=== PATIENT | female | born 1955 | race Caucasian/White ===

== ENCOUNTER 2019-10-03 09:29 | Emergency (ER) | payer MEDICARE, OTHER, SELFPAY ==
[2019-10-03 09:34] VITALS: BP 139/70; PULSE 75; RESP 16; TEMP 37.2; O2SAT 100
[2019-10-03 09:41] VITALS: PULSE 78; RESP 18; O2SAT 98
--- NOTE | 2019-10-03 10:09 | ED.GENADULT ---
HPI - General Adult General Chief complaint: Allergic Reaction Stated complaint: allergic reaction Time Seen by Provider: 10/03/19 10:08 Source: patient Mode of arrival: ambulatory Limitations: no limitations History of Present Illness HPI narrative: 64-year-old female patient presents to the [facility] with complaints of a rash for the past 3 days. Patient states she started taking some clindamycin for a dental infection along with ibuprofen and tramadol about a week ago. Patient states that she stopped taking the tramadol and ibuprofen this past Sunday because she did not need it for the pain anymore. Patient states she started breaking out into a rash Sunday. Complaining of itchiness and rash to the chest, back, neck. Patient states she went saw her primary doctor yesterday and had steroid shot . Patient unknown of what type steroid it is. Patient states that this morning she woke up and her eyes were swollen shut and continues to have itchiness and a rash that she feels that is worse. Denies taking any Benadryl or any other medications prior to arrival today. Denies any chest pain or shortness of breath. Denies any trouble swallowing. Denies coming into contact with any poison matt that she is aware of. Related Data Home Medications Medication Instructions Recorded Confirmed biotin 10,000 mcg capsule 10,000 mcg PO .qd cap 04/28/19 08/08/19 blood sugar diagnostic #10 each 04/28/19 08/08/19 mecobalamin (vitamin B12) 1,000 1,000 mcg PO .qd tablet 04/28/19 08/08/19 mcg chewable tablet methylcellulose (laxative) 500 mg 500 mg PO DAILY 04/28/19 08/08/19 tablet vitamin B comp with C no.4 150 mg 1 tablet PO .qd tablet 04/28/19 08/08/19 tablet calcium citrate 500 mg (2,376 mg) 500 mg PO DAILY each 07/31/19 08/08/19 effervescent tablet Allergies Allergy/AdvReac Type Severity Reaction Status Date / Time Macrolide Antibiotics Allergy Severe Anaphylactic Verified 10/03/19 09:43 Shock clindamycin Allergy Intermediate Rash, Verified 10/03/19 09:43 burning, hives losartan Allergy Intermediate panic Verified 10/03/19 09:43 attacks and wt gain Sulfa (Sulfonamide Allergy Intermediate Headache Verified 10/03/19 09:43 Antibiotics) MELVIN Inhibitors Allergy Mild Unknown Verified 10/03/19 09:43 ampicillin Allergy Mild Unknown Verified 10/03/19 09:43 Cephalosporins Allergy Mild Unknown Verified 10/03/19 09:43 erythromycin base Allergy Mild Unknown Verified 10/03/19 09:43 ezetimibe Allergy Mild Unknown Verified 10/03/19 09:43 metronidazole Allergy Mild Unknown Verified 10/03/19 09:43 Penicillins Allergy Mild Unknown Verified 10/02/19 10:05 simvastatin Allergy Mild Unknown Verified 10/02/19 10:05 Tetanus Vaccines and Toxoid Allergy Mild Unknown Verified 10/02/19 10:05 METALS Allergy Severe HIVES/RASH Uncoded 10/02/19 10:05 METRONIDAZOLE HCL Allergy Intermediate Welts, Uncoded 10/02/19 10:05 fever, itching Review of Systems Review of Systems: Narrative: CONSTITUTIONAL: Denies fever, chills, or sweats. EYES: Denies visual changes, redness, or discharge. ENT: Denies rhinorrhea, congestion, sore throat, or otalgia. CARDIOVASCULAR: Denies chest pain, palpitations, or edema. RESPIRATORY: Denies cough or dyspnea. GASTROINTESTINAL: Denies abdominal pain, nausea, vomiting, or diarrhea. GENITOURINARY: Denies dysuria or hematuria. SKIN: Positive rash with itching to chest, neck, back and face MUSCULOSKELETAL: Denies back pain, joint pain, or myalgia. NEUROLOGIC: Denies headache, numbness, or weakness. PSYCHIATRIC: Denies anxiety or depression. [facility] Family History Family History Mother Family history of malignant neoplasm of breast in first degree relative Family history of chronic obstructive pulmonary disease Father Hypertension Family history of malignant neoplasm of urinary bladder Social History Social History (Reviewed
[2019-10-03] MEDS: predniSONE 20 MG TABLET 40 MG PO (10:27)
[2019-10-03] MEDS: diphenhydrAMINE HCl CAP 25 MG CAPSULE PO (10:27)
[2019-10-03 11:01] VITALS: BP 140/80; PULSE 70; RESP 19; O2SAT 98
== END 2019-10-03 11:03 | disposition home or self-care (01) ==
PROVIDERS: Emergency Provider Nurse Practitioner Family; PCP Internal Medicine
DX: T78.40XA Allergy, unspecified, initial encounter (principal); Z79.84 Long term (current) use of oral hypoglycemic drugs; R03.0 Elevated blood-pressure reading, without diagnosis of hypertension
CPT/HCPCS: 99283; A9270; J7512

== ENCOUNTER 2021-08-03 09:00 | Outpatient (CLI) | payer MEDICARE, OTHER, SELFPAY ==
--- NOTE | 2021-08-03 09:07 | ECHO_ITS ---
Patient Info Name: Taylor Archibald Age: 66 years : 1955 Gender: Female Ht: 64 in Wt: 190 lbs BSA: 2.01 m2 HR: 76 bpm BP: 143 / 88 mmHg Heart Rhythm: Sinus Rhythm Exam Date: 08/03/2021 9:38 AM Exam Location: [facility] Patient Status: Outpatient Admit Date: 08/03/2021 Staff Ordering Physician: Alex Bedolla PA-C Scrap Metal Collector: Marques Griffiths RDCS, RT Attending Provider: Alex Bedolla PA-C Referring Physician: Chioma HANDY; Exam Type: CA echo doppler color flow Study Info Indications R01.1 - Cardiac murmur, unspecified Complete two-dimensional, color flow and Doppler transthoracic echocardiogram is performed. Strain analysis performed. Summary 1. Complete two-dimensional, color flow and Doppler transthoracic echocardiogram is performed. 2. Left ventricular chamber dimension is normal. 3. Left ventricular systolic function is normal, estimated at >70%. 4. There is mildly increased left ventricular wall thickness. 5. The left ventricular diastolic function is grade I diastolic dysfunction. 6. Global longitudinal strain is mildly elevated at -16 %. 7. There is trace mitral valve regurgitation. 8. There is trace tricuspid valve regurgitation. 9. No pulmonary hypertension, estimated pulmonary arterial systolic pressure is 27 mmHg. 10. There is no aortic valve stenosis. Left Ventricle Left ventricular chamber dimension is normal. Left ventricular systolic function is normal, estimated at >70%. There is mildly increased left ventricular wall thickness. The left ventricular diastolic function is grade I diastolic dysfunction. Global longitudinal strain is mildly elevated at -16 %. Right Ventricle Right ventricular chamber dimension is normal. Right ventricular systolic function is normal. Left Atria Left atrial chamber dimension is normal. Right Atria Right atrial chamber dimension is normal. Aortic Valve The aortic valve is probable trileaflet. There is mild aortic valve sclerosis. There is no aortic valve stenosis. There is mild aortic valve regurgitation. Pulmonic Valve The pulmonic valve is not well visualized. There is trace pulmonic regurgitation. Mitral Valve The mitral valve has thickened leaflets. There is trace mitral valve regurgitation. The mitral valve annulus is mildly calcified. Tricuspid Valve The tricuspid valve leaflets are normal. There is trace tricuspid valve regurgitation. No pulmonary hypertension, estimated pulmonary arterial systolic pressure is 27 mmHg. Pericardium/Pleural The pericardium appears epicardial fat pad. There is trivial pericardial effusion. Inferior Vena Cava Normal inferior vena cava with >50% collapse upon inspiration consistent with normal right atrial pressure, 5 mmHg. Aorta The aortic root size at the sinus of Valsalva is normal. There is mild aortic atherosclerosis. Left Ventricular Outflow Tract Name Value Normal LVOT 2D LVOT Diameter 2.0 cm LVOT Doppler LVOT Peak Gradient 3 mmHg LVOT Mean Gradient 2 mmHg LVOT VTI
== END 2021-08-03 09:01 | disposition home or self-care (01) ==
LOC: ANHCARD 09:01
PROVIDERS: PCP Physician Assistant; Visit Provider Physician Assistant
DX: R01.1 Cardiac murmur, unspecified (principal)
CPT/HCPCS: 93306

== ENCOUNTER 2021-10-11 09:36 | Outpatient (CLI) | payer MEDICARE, OTHER, SELFPAY ==
--- NOTE | ~2021-10-11 | DEXA_ITS ---
Bone Density Report Name: MAYDA RODRIGUEZ Age: 66 Sex: Female Ethnicity: White Date of : 1955 Indication: postmenopausal; screening for osteoporosis; inflammatory bowel disease; prior fracture; cancer; rheumatoid arthritis; Referring Provider: PARKER CAAL Study: Bone densitometry was performed. Exam Date: October 11, 2021 Accession number: [id number] Bone Density: Region BMD T-score Z-score Classification AP Spine(L1-L4) 1.182 1.2 3.2 Normal Femoral Neck (Left) 0.805 -0.4 1.3 Normal Total Hip (Left) 0.958 0.1 1.6 Normal Femoral Neck (Right) 0.847 0.0 1.7 Normal Total Hip (Right) 0.980 0.3 1.7 Normal Total Hip Mean 0.969 0.2 1.7 Normal World Health Organization criteria for BMD impression classify patients as: Normal (T-score at or above -1.0), Osteopenia (T-score between -1.0 and -2.5), or Osteoporosis (T-score at or below -2.5). 10-year Fracture Risk: FRAX not reported because: All T-scores for Spine Total, Hip Total, Femoral Neck at or above -1.0 Previous Exams: Region Exam Age BMD T-score BMD Change BMD Change Date g/cm2 vs Baseline vs Previous AP Spine (L1-L4) 10/11/2021 66 1.182 1.2 -0.016 (-1.3%) -0.012 (-1.0%) 04/06/2015 60 1.194 1.3 -0.003 (-0.3%) -0.003 (-0.3%) 02/11/2013 57 1.197 1.4 Total Hip(Left) 10/11/2021 66 0.958 0.1 -0.067 (-6.5%) -0.043 (-4.3%) 04/06/2015 60 1.001 0.5 -0.024 (-2.3%) -0.024 (-2.3%) 02/11/2013 57 1.025 0.7 Total Hip(Right) 10/11/2021 66 0.980 0.3 -0.138 (-12.3% -0.082 (-7.7%) 04/06/2015 60 1.063 1.0 -0.055 (-4.9%) -0.055 (-4.9%) 02/11/2013 57 1.118 1.4 *Denotes significance at 95% confidence level, LSC for AP Spine = 0.022 g/cm2, LSC for Total Hip = 0.027 g/cm2 # Denotes dissimilar scan types or analysis methods Clinical Information Provided by Patient: Has had a low trauma fracture Has rheumatoid arthritis Has used the following medications: Vitamin D, Calcium Has the following medical conditions: Cancer, Inflammatory bowel diseases Patient maximum height was 64 Menopause Age: 48 No regular weight bearing exercise Drinks caffeinated beverages Onset of menses at age 6 Number of children 2 Impression: The patient has normal bone mass. The patient has risk factors, including: previous fracture. The BMD for the Total Hip(Left) decreased, changing by -4.3% since the last DXA exam. The BMD for the Total Hip(Right) decreased, ch
== END 2021-10-11 09:37 | disposition home or self-care (01) ==
PROVIDERS: PCP Physician Assistant; Visit Provider Physician Assistant
DX: M81.0 Age-related osteoporosis without current pathological fracture (principal)
CPT/HCPCS: 77080

== ENCOUNTER 2022-09-12 13:07 | Emergency (ER) | payer MEDICARE, OTHER, SELFPAY ==
[2022-09-12 13:10] VITALS: BP 135/71; PULSE 79; RESP 18; TEMP 36.3; O2SAT 100
--- NOTE | 2022-09-12 15:02 | ED.BACK ---
HPI - Back Pain/Injury General Chief Complaint: Back Pain/Injury Stated Complaint: back pain Time Seen by Provider: 09/12/22 14:16 Source: patient Mode of arrival: ambulatory Limitations: no limitations History of Present Illness HPI Narrative: 67 years old white female came to the emergency room by private car complaining of sharp stabbing pain across lower back bilaterally started 5 days ago. Patient set up a tent 6 days ago. Which is unusual. She denies any fever, chills, nausea, vomiting, trauma, radiation of pain, tingling numbness or focal neurodeficit. Pain worse with certain movement and position, better with certain positions. Related Data Home Medications Medication Instructions Recorded Confirmed biotin 10,000 mcg capsule 10,000 mcg PO .qd 04/28/19 07/20/22 blood sugar diagnostic (Accu-Chek #10 ea 04/28/19 07/20/22 Shayla Plus test strips) mecobalamin (vitamin B12) 1,000 1,000 mcg PO .qd 04/28/19 07/20/22 mcg chewable tablet methylcellulose (laxative) 500 mg 500 mg PO DAILY 04/28/19 07/20/22 tablet (Citrucel) vitamin B comp with C no.4 150 mg 1 tablet PO .qd 04/28/19 07/20/22 tablet calcium citrate 500 mg (2,376 mg) 500 mg PO DAILY 07/31/19 07/20/22 effervescent tablet Allergies Allergy/AdvReac Type Severity Reaction Status Date / Time Macrolide Antibiotics Allergy Severe Anaphylactic Verified 09/12/22 13:07 Shock clindamycin Allergy Intermediate Rash, Verified 09/12/22 13:07 burning, hives losartan Allergy Intermediate panic Verified 09/12/22 13:07 attacks and wt gain Sulfa (Sulfonamide Allergy Intermediate Headache Verified 09/12/22 13:07 Antibiotics) MELVIN Inhibitors Allergy Mild Unknown Verified 09/12/22 13:07 ampicillin Allergy Mild Unknown Verified 09/12/22 13:07 Cephalosporins Allergy Mild Unknown Verified 09/12/22 13:07 erythromycin base Allergy Mild Unknown Verified 09/12/22 13:07 ezetimibe Allergy Mild Unknown Verified 09/12/22 13:07 metronidazole Allergy Mild Unknown Verified 09/12/22 13:07 Penicillins Allergy Mild Unknown Verified 09/12/22 13:07 simvastatin Allergy Mild Unknown Verified 09/12/22 13:07 Tetanus Vaccines and Toxoid Allergy Mild Unknown Verified 09/12/22 13:07 METALS Allergy Severe HIVES/RASH Uncoded 09/12/22 13:07 METRONIDAZOLE HCL Allergy Intermediate Welts, Uncoded 09/12/22 13:07 fever, itching Review of Systems Review of Systems: All systems reviewed & are unremarkable except as noted in HPI and below PMFSH Past Medical History Medical History Ulcerative colitis Family History Family History Mother Family history of malignant neoplasm of breast in first degree relative Family history of chronic obstructive pulmonary disease Father Hypertension Family history of malignant neoplasm of urinary bladder Social History Social History Smoking packs per day: 3 Smoking cigarettes per day: 60.0 Years smoked: 18 Smoking pack-years: 54.00 Smoking status: Former smoker Second hand tobacco smoke exposure: No Smoking end date: 03/05/84 Alcohol intake: never Substance use: never Lack of Transportation: No Lack of Food: Never True Current Housing: I Have Housing Concerned About Future Housing: No Difficulty Paying Gas/Electric Bills: No Difficulty Paying for Meds: YES Currently Unemployed: No Education: Master's Degree or Higher Difficulty w/ Childcare or Family Care: No Exam Narrative: General appearance: Well-developed, well-nourished Skin: Normal color Head: Normocephalic, nontraumatic Eyes: Clear conjunctiva ENT: Oropharynx normal, ears normal, nose normal Neck: Supple, nontender Chest and respiratory: Airway patent, no respiratory distress, no accessory muscle use Heart: Regular rate/rhythm Abdomen: Soft, nontender, no org
[2022-09-12] MEDS: ONDANSETRON HCL ODT 4 MG TABLET PO (15:12)
[2022-09-12] MEDS: CYCLOBENZAPRINE HCL 10 MG TABLET 5 MG PO (15:12)
== END 2022-09-12 15:54 | disposition home or self-care (01) ==
PROVIDERS: Emergency Provider Emergency Medicine; PCP Physician Assistant
DX: M54.50 Low back pain, unspecified (principal)
CPT/HCPCS: 99283; A9270; J2270

== ENCOUNTER 2022-09-27 11:48 | Outpatient (CLI) | payer MEDICARE, OTHER, SELFPAY ==
--- NOTE | ~2022-09-27 | XR_ITS ---
XR lumbar spine 6V w bending DATE: 09/27/2022 12:32 INDICATION: Low back pain after picking up a tent TECHNIQUE: AP, lateral, bilateral oblique views, coned lateral lumbosacral view. Flexion and extensio n lateral views COMPARISON: 02/17/2010/ lumbar spine FINDINGS: There is mild thoracolumbar levoscoliosis. There is normal alignment of the lumbar spine. No fracture or bone destruction. The lumbar pedicles are intact. There is degenerative spurring of the lower thoracic and upper lumbar spine. There is moderate degen erative disc disease at L1-2 and L2-3 with associated mild retrolisthesis at L2-3. There is degenerative spurring of the apophyseal joints with grade 1 anterolisthesis at L4-5. Status post cholecystectomy. IMPRESSION: Lower thoracic and lumbar spondylosis Reviewed, dictated and finalized at location B.
[2022-09-27 13:07] LABS: Appearance Urine Clear (Clear); Bacteria Urine None Seen /hpf; Bilirubin Urine Negative (Negative); Blood Urine Negative (Negative); Color Urine Yellow (Yellow); Glucose Urine UA Negative (Negative); Ketones Urine Negative (Negative); Leukocyte Esterase Ur 2+ LEU/UL (NEGATIVE); Nitrate Urine Negative (Negative); Non Pathogenic Casts 0-2; Protein Urine Negative (Negative); RBC Urine 0-2 /hpf (0-2); Specific Grav Ur 1.015 (1.001-1.035); Squamous Epithelial Cell Urine None seen /hpf (Few); pH Urine 6.5 (5.0-9.0)
[2022-09-27 13:21] LABS: Add Urine Microscopic? YES
== END 2022-09-27 11:49 | disposition home or self-care (01) ==
PROVIDERS: PCP Physician Assistant; Visit Provider Physician Assistant
DX: R30.0 Dysuria (principal); M47.894 Other spondylosis, thoracic region; M47.896 Other spondylosis, lumbar region
CPT/HCPCS: 72114; 81001; 87086

== ENCOUNTER 2022-10-05 07:51 | Outpatient (RCR) | payer MEDICARE, OTHER, SELFPAY ==
--- NOTE | 2022-10-05 11:28 | PTOPEVDC ---
Assessment and note entered by Iron Boyce, PT Thank you for referring Taylor Archibald to [facility].? An evaluation has been completed. No further treatment is needed. Evaluation Information Assessment Status Evaluation Diagnosis low back pain Onset a few weeks ago Subjective Information Patient reports hurting her back a couple weeks ago and went to the ER. Patient reports the pain is getting better. She still does have a band around L4-L5 that does hurt, but she attributes that to her DDD which she reports she has had since she was 25 year ago. Patient reports increased pain with flexion especially after sitting for a long period of time, but after doing her stretches it works itself out. Reported Pain Level Pain Score 2: Self Report Assessment PT Clinical Summary Macho is a 67 year old female coming into the clinic with a diagnosis of low back pain. It is non radiating and appears to have the S/S of OA and DDD. Patient given an HEP for home as she reports her chiropractor can help with break through pain if she has an exacerbation. Discharged from physical therapy. Plan of Care PT Services Indicated No Treatment Frequency and Discharged from skilled physical therapy. Duration
== END 2022-10-05 11:36 | disposition home or self-care (01) ==
LOC: ANHPT 07:51
PROVIDERS: PCP Physician Assistant; Visit Provider Physician Assistant
DX: M54.50 Low back pain, unspecified (principal)
CPT/HCPCS: 97110; 97161

== ENCOUNTER 2023-08-22 08:16 | Outpatient (CLI) | payer MEDICARE, OTHER, SELFPAY ==
--- NOTE | ~2023-08-22 | MR_ITS ---
EXAMINATION: MR shoulder LT wo con DATE: 08/22/2023 09:02 INDICATION: Left shoulder pain. TECHNIQUE: Magnetic resonance imaging (MRI) of the left shoulder was performed without intravenous co ntrast. Sequences included axial PD-weighted FS FSE, coronal oblique PD-weighted FS FSE and T2-weight ed FS FSE, and sagittal oblique T2-weighted FS FSE and T1-weighted FSE. COMPARISON: Left shoulder radiograph 08/15/2023 FINDINGS: Coracoacromial arch: The acromion undersurface is curved in morphology (type II). There is severe acromioclavicular joint osteoarthritis. There is mild subacromial/subdeltoid bursitis. Rotator cuff: There is mild supraspinatus and infraspinatus tendinopathy. Teres minor tendon is normal. There is mi ld subscapularis tendinopathy. No tear. There is no asymmetric fatty atrophy of the rotator cuff musc le bellies. Biceps tendon and glenoid labrum: Biceps tendon is in bicipital groove. There is moderate intra-articular biceps tendinopathy. There is degenerative tearing of the glenoid labrum (SLAP tear). Fluid: There is a moderate-sized glenohumeral joint effusion with loose bodies. Bones/cartilage: There is an old healed fracture deformity of surgical neck of proximal left humerus. There is full-th ickness cartilage loss of posterior medial humeral head and posterior glenoid. There is collapse of t he articular surface of posterior medial humeral head. IMPRESSION: 1. Advanced glenohumeral joint osteoarthritis including collapse of the articular surface of posterio r medial humeral head. 2. Severe acromioclavicular joint osteoarthritis. 3. Moderate-sized glenohumeral joint effusion with loose bodies. 4. Moderate intra-articular biceps tendinopathy. 5. Mild rotator cuff tendinopathy. No tear. Reviewed, dictated and finalized at location A. IMPRESSION: 1. Advanced glenohumeral joint osteoarthritis including collapse of the articul ar surface of posterior medial humeral head. 2. Severe acromioclavicular joint osteoarthritis. 3. Moderate-sized glenohumeral joint effusion with loose bodies. 4. Moderate intra-articular biceps tendinopathy. 5. Mild rotator cuff tendinopathy. No tear.
== END 2023-08-22 08:17 ==
LOC: GOSHIMG 08:17
PROVIDERS: PCP Physician Assistant; Visit Provider Orthopaedic Surgery
DX: M19.012 Primary osteoarthritis, left shoulder (principal); M75.52 Bursitis of left shoulder; M25.412 Effusion, left shoulder; M24.012 Loose body in left shoulder
CPT/HCPCS: 73221

== ENCOUNTER 2023-09-20 06:13 | Day surgery (SDC) | payer MEDICARE, OTHER, SELFPAY ==
[2023-08-06 11:59] VITALS: BMI 31.0
--- NOTE | 2023-09-20 07:13 | PM.HPGS ---
History of Present Illness History of Present Illness Consent: Risks, benefits, and alternatives have been discussed and questions answered. Patient agrees to proceed with procedure. Chief complaint: Ulcerative colitis Narrative: Taylor Archibald is a 68 year old female presents for screening colonoscopy. Patient has a long history of ulcerative colitis. Previously maintained on Asacol. Colonoscopy 5 years ago revealed mucosa to be in remission. Patient has had no recent flares of disease. She discontinued the Asacol 1-2 years ago. Her bowel habits have remained normal. Some diarrhea when she becomes anxious and under stress. Family history is noncontributory. Patient's past medical history also includes gastric bypass surgery in the past. She presents today for surveillance screening colonoscopy. Review of Systems Review of Systems: All systems reviewed & are unremarkable except as noted in HPI and below PMFSH Past Medical History Medical History (Updated 09/20/23 @ 07:15 by Gregory Cano MD) Arthritis Diabetes Rheumatoid arthritis Ulcerative colitis Surgical History Surgical History (Updated 08/15/23 @ 08:57 by La Das CMA) History of carpal tunnel release of both wrists History of cholecystectomy History of gastric bypass History of tonsillectomy Family History Family History Mother Family history of malignant neoplasm of breast in first degree relative Family history of chronic obstructive pulmonary disease Father Hypertension Family history of malignant neoplasm of urinary bladder Social History Social History (Updated 08/15/23 @ 08:57 by La Das CMA) Smoking packs per day: 3 Smoking cigarettes per day: 60.0 Years smoked: 18 Smoking pack-years: 54.00 Smoking status: Former smoker Tobacco type: cigarettes Second hand tobacco smoke exposure: No Smoking end date: 03/05/84 Alcohol intake: never Substance use: never Substance use type: does not use Lack of Transportation: No Lack of Food: Never True Current Housing: Decline to Answer Concerned About Future Housing: No Difficulty Paying Gas/Electric Bills: No Difficulty Paying for Meds: No Currently Unemployed: No Education: Master's Degree or Higher Difficulty w/ Childcare or Family Care: No Living arrangements: with family Occupation/Education: retired Spiritual care concerns: No Meds Home Medications and Allergies Home Medications Medication Instructions Recorded Confirmed Type biotin 10,000 mcg capsule 10,000 mcg PO .qd 04/28/19 09/20/23 History blood sugar diagnostic (Accu-Chek #10 ea 04/28/19 07/26/23 History Shayla Plus test strips) folic acid 1 mg tablet 1 mg PO DAILY #90 tabs 04/28/19 09/20/23 Rx mecobalamin (vitamin B12) 1,000 1,000 mcg PO .qd 04/28/19 09/05/23 History mcg chewable tablet vitamin B comp with C no.4 150 mg 1 tablet PO .qd 04/28/19 09/05/23 History tablet calcium citrate 500 mg (2,376 mg) 500 mg PO DAILY 07/31/19 09/20/23 History effervescent tablet betamethasone valerate 0.1 % 1 applic topical BID PRN rash #45 08/26/20 09/20/23 Rx topical cream grams fluoxetine 40 mg capsule 40 mg PO QAM #90 caps 07/20/22 09/20/23 Rx cyclobenzaprine 5 mg tablet 5 mg PO TID #20 tabs 09/12/22 09/20/23 Rx tramadol 50 mg tablet 50 mg PO Q4H PRN pain #20 tabs 09/12/22 09/05/23 Rx alprazolam 0.25 mg tablet 0.25 mg PO BID PRN anxiety #180 05/08/23 09/05/23 Rx tabs methotrexate sodium 2.5 mg tablet 20 mg PO WEEKLY #96 tabs 05/08/23 09/05/23 Rx omeprazole 20 mg capsule,delayed 20 mg PO DAILY #90 caps 05/08/23 09/05/23 Rx release hydrochlorothiazide 25 mg tablet 25 mg PO DAILY #90 tabs 06/25/23 09/20/23 Rx metformin 500 mg tablet 1,000 mg PO BID #360 tabs 07/30/23 09/05/23 Rx Zyrtec-D 5 mg-120 mg 1 tablet PO Q12H #180 tabs 08/24/23 09/05/23 Rx tablet,extended release (cetirizine-p
--- NOTE | 2023-09-20 07:21 | WPDANESEPPF ---
Anes - Initial Pre Proc Eval Procedure: Operation Date: 09/20/23 08:00 Proposed Procedures p Diagnostic Colonoscopy - Gregory Cano MD Date/Time: 09/20/23 07:21 Surgeon: Gregory Cano MD Pre Op Diagnosis: Ulcerative colitis Patient Data Age: 68 Gender: F Height: 1.6 m Weight: 77 kg Allergies Allergy/AdvReac Type Severity Reaction Status Date / Time erythromycin base Allergy Severe Other Verified 09/05/23 14:10 Macrolide Antibiotics Allergy Severe Anaphylactic Verified 09/20/23 07:12 Shock clindamycin Allergy Intermediate Rash, Verified 09/20/23 07:12 burning, hives losartan Allergy Intermediate panic Verified 09/20/23 07:12 attacks and wt gain MELVIN Inhibitors Allergy Mild Unknown Verified 09/20/23 07:12 ampicillin Allergy Mild Rash Verified 09/20/23 07:12 Cephalosporins Allergy Mild Rash Verified 09/20/23 07:12 ezetimibe Allergy Mild Unknown Verified 09/20/23 07:12 Penicillins Allergy Mild Rash Verified 09/20/23 07:12 simvastatin Allergy Mild Unknown Verified 09/20/23 07:12 Sulfa (Sulfonamide AdvReac Intermediate Headache Verified 09/05/23 14:10 Antibiotics) Tetanus Vaccines and Toxoid AdvReac Mild Itching Verified 09/05/23 14:10 METALS Allergy Severe HIVES/RASH Uncoded 09/05/23 14:10 METRONIDAZOLE HCL Allergy Intermediate Welts, Uncoded 09/05/23 14:10 fever, itching Home Medications Medication Instructions Recorded Confirmed Type biotin 10,000 mcg capsule 10,000 mcg PO .qd 04/28/19 09/20/23 History blood sugar diagnostic (Accu-Chek #10 ea 04/28/19 07/26/23 History Shayla Plus test strips) folic acid 1 mg tablet 1 mg PO DAILY #90 tabs 04/28/19 09/20/23 Rx mecobalamin (vitamin B12) 1,000 1,000 mcg PO .qd 04/28/19 09/05/23 History mcg chewable tablet vitamin B comp with C no.4 150 mg 1 tablet PO .qd 04/28/19 09/05/23 History tablet calcium citrate 500 mg (2,376 mg) 500 mg PO DAILY 07/31/19 09/20/23 History effervescent tablet betamethasone valerate 0.1 % 1 applic topical BID PRN rash #45 08/26/20 09/20/23 Rx topical cream grams fluoxetine 40 mg capsule 40 mg PO QAM #90 caps 07/20/22 09/20/23 Rx cyclobenzaprine 5 mg tablet 5 mg PO TID #20 tabs 09/12/22 09/20/23 Rx tramadol 50 mg tablet 50 mg PO Q4H PRN pain #20 tabs 09/12/22 09/05/23 Rx alprazolam 0.25 mg tablet 0.25 mg PO BID PRN anxiety #180 05/08/23 09/05/23 Rx tabs methotrexate sodium 2.5 mg tablet 20 mg PO WEEKLY #96 tabs 05/08/23 09/05/23 Rx omeprazole 20 mg capsule,delayed 20 mg PO DAILY #90 caps 05/08/23 09/05/23 Rx release hydrochlorothiazide 25 mg tablet 25 mg PO DAILY #90 tabs 06/25/23 09/20/23 Rx metformin 500 mg tablet 1,000 mg PO BID #360 tabs 07/30/23 09/05/23 Rx Zyrtec-D 5 mg-120 mg 1 tablet PO Q12H #180 tabs 08/24/23 09/05/23 Rx tablet,extended release (cetirizine-pseudoephedrine) sodium,potassium,mag sulfates 17.5 See Rx Instructions PO .COMPLEX 09/10/23 Rx gram-3.13 gram-1.6 gram oral soln #354 mL (Suprep Bowel Prep Kit) Patient hx anesthesia problems: none Family hx anesthesia problems: none Results Review: All pre-operative results and documents have been reviewed as part of the pre-operative evaluation. [facility] Past Medical History Medical History Arthritis Diabetes Rheumatoid arthritis Ulcerative colitis Surgical History Surgical History History of carpal tunnel release of both wrists History of cholecystectomy History of gastric bypass History of tonsillectomy Family History Family History Mother Family history of malignant neoplasm of breast in first degree relative Family history of chronic obstructive pulmonary disease Father Hypertension Family history of malignant neoplasm of urinary bladder Social History Social History (Reviewed 09/20/23 @ 07:21 by Jadiel Hall,
[2023-09-20 07:35] LABS: Glucose Point of Care 139 mg/dl (65-105)
[2023-09-20 07:37] VITALS: BP 130/90; PULSE 78; RESP 20; TEMP 37.4; O2SAT 99; BMI 31.0
[2023-09-20] MEDS: LACTATED RINGERS 1,000 ML 150 ML IV CONT (07:40)
[2023-09-20 08:18] VITALS: BP 90/56; PULSE 71; RESP 18; O2SAT 95
[2023-09-20 08:28] VITALS: BP 108/72; PULSE 72; RESP 20; O2SAT 100
--- NOTE | 2023-09-20 08:28 | WPDANESPN ---
Anes - Prog Note Post-Op Date/Time: 09/20/23 08:28 Cardiovascular status: normal Respiratory status: normal Airway patency: baseline Mental status: baseline Post-Op hydration status: normal Vital Signs: Last Vital Signs Temp 37.4 C 09/20/23 07:37 Pulse 78 09/20/23 07:37 Resp 20 09/20/23 07:37 BP 130/90 09/20/23 07:37 Pulse Ox 99 09/20/23 07:37 O2 Del Method Room Air 09/20/23 07:37 Pain Score (VAS): 0/10 I/O: Intake & Output 09/19/23 09/20/23 09/20/23 23:59 07:59 15:59 Intake Total 250 Balance 250 09/20/23 07:33 POC Capillary Glucose 139 H Patient Feedback: Patient satisfied with anesthetic care.
[2023-09-20 08:38] VITALS: BP 124/86; PULSE 72; RESP 20; O2SAT 99
== END 2023-09-20 08:50 | disposition home or self-care (01) ==
PROVIDERS: PCP Physician Assistant; Visit Provider Internal Medicine Gastroenterology
PROC: 0DJD8ZZ Inspection of Lower Intestinal Tract, Via Natural or Artificial Opening Endoscopic (ICD-10-PCS; CPT 45378; principal; 2023-09-20 08:00)
DX: Z12.11 Encounter for screening for malignant neoplasm of colon (principal); D12.5 Benign neoplasm of sigmoid colon; K57.30 Diverticulosis of large intestine without perforation or abscess without bleeding; K64.8 Other hemorrhoids; Z87.19 Personal history of other diseases of the digestive system
CPT/HCPCS: 45385; 45380

== ENCOUNTER 2023-09-20 07:00 | Outpatient (NON) | payer MEDICARE, OTHER, SELFPAY | END 2023-09-20 07:01 | disposition home or self-care (01) | LOC: ANHLAB 09-21 09:09 | PROVIDERS: PCP Internal Medicine; Visit Provider Internal Medicine Gastroenterology | DX: K51.90 Ulcerative colitis, unspecified, without complications (principal) | CPT/HCPCS: 88305 ==

== ENCOUNTER 2024-09-25 08:37 | Emergency (ER) | payer MEDICARE, OTHER, SELFPAY ==
--- NOTE | 2024-09-25 08:43 | ED_ITS ---
HPI - Skin/Abscess/Foreign Bdy General Chief complaint: Skin/Abscess/Foreign Body Stated complaint: Bug Bite Time Seen by Provider: 09/25/24 09:05 Source: patient, RN notes reviewed and old records reviewed Mode of arrival: ambulatory Limitations: no limitations History of Present Illness HPI narrative: 69-year-old female presents to the [facility] with concerns of a bug bite to the dorsal right hand, occurred 4 days ago. Reports that is being itchy. States the bug look like a ?rolled up leaf. ? Treatments prior to arrival: none Related Data Home Medications ?Medication ?Instructions ?Recorded ?Confirmed ?Last Taken ?Type biotin 10,000 mcg capsule 10,000 mcg PO .qd 04/28/19 09/25/24 09/13/23 History blood sugar diagnostic (Accu-Chek #10 ea 04/28/19 10/14/23 Unknown History Shayla Plus test strips) mecobalamin (vitamin B12) 1,000 1,000 mcg PO .qd 04/28/19 09/25/24 09/05/23 History mcg chewable tablet vitamin B comp with C no.4 150 mg 1 tablet PO .qd 04/28/19 09/25/24 09/05/23 History tablet calcium citrate 500 mg (2,376 mg) 500 mg PO DAILY 07/31/19 09/25/24 09/12/23 History effervescent tablet Allergies Allergy/AdvReac Type Severity Reaction Status Date / Time erythromycin base Allergy Severe Other Verified 09/25/24 08:50 Macrolide Antibiotics Allergy Severe Anaphylactic Verified 09/25/24 08:50 Shock clindamycin Allergy Intermediate Rash, Verified 09/25/24 08:50 burning, hives losartan Allergy Intermediate panic Verified 09/25/24 08:50 attacks and wt gain MELVIN Inhibitors Allergy Mild Unknown Verified 09/25/24 08:50 ampicillin Allergy Mild Rash Verified 09/25/24 08:50 Cephalosporins Allergy Mild Rash Verified 09/25/24 08:50 ezetimibe Allergy Mild Unknown Verified 09/25/24 08:50 Penicillins Allergy Mild Rash Verified 09/25/24 08:50 simvastatin Allergy Mild Unknown Verified 09/25/24 08:50 Sulfa (Sulfonamide AdvReac Intermediate Headache Verified 09/25/24 08:50 Antibiotics) Tetanus Vaccines and Toxoid AdvReac Mild Itching Verified 09/25/24 08:50 METALS Allergy Severe HIVES/RASH Uncoded 09/25/24 08:50 METRONIDAZOLE HCL Allergy Intermediate Welts, Uncoded 09/25/24 08:50 fever, itching Review of Systems Review of Systems: All systems reviewed & are unremarkable except as noted in HPI and below Constitutional: Constitutional: Reports no additional constitutional complaints ENT: Reports system reviewed and no additional complaints, except as documented Cardiovascular: Cardiovascular: Reports no additional cardiovascular complaints, Denies chest pain and Denies dyspnea Respiratory: Respiratory: Reports no additional respiratory complaints, Denies chest congestion, Denies cough and Denies dyspnea Musculoskeletal: Musculoskeletal: Reports no additional musculoskeletal complaints Integumentary/Breasts: Skin/Breast: Reports as per HPI [facility] Past Medical History Medical History Rheumatoid arthritis Arthritis Diabetes Ulcerative colitis Surgical History Surgical History History of cholecystectomy History of tonsillectomy History of gastric bypass History of carpal tunnel release of both wrists Family History Family History Mother Family history of malignant neoplasm of breast in first degree relative Family history of chronic obstructive pulmonary disease Father Hypertension Family history of malignant neoplasm of urinary bladder Sibling No problems noted. Sibling Heart disease Social History Social History Smoking packs per day: 3 Smoking cigarettes per day: 60.0 Years smoked: 18 Smoking pack-years: 54.00 Smoking status: Former smoker Tobacco type: cigarettes Second hand tobacco smoke exposure: No Smoking end date: 03/05/84 Alcohol intake: never Substance use: never Substance use type: does not use Do You Feel Safe in your Home?: Yes Lack of Transportation: No Lack of Food: Never True Current Housing: Decline to Answer Concerned About Future Housing: Decline to Answer Difficulty Paying Gas/Electric Bills: Decline to Answer Difficulty Paying for Meds: Decline to Answer Currently Unemployed: Decline to Answer Education: Decline to Answer Difficulty w/ Childcare or Family Care: Decline to Answer Living arrangements: with family Occupation/Education: retired 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 There is no relevant family history pertinent to the patient complaint. Exam Const: General: cooperative, healthy appearing, comfortable, no acute distress, well developed, alert and well nourished Nutritional Appearance: well nourished Orientation/consciousness: patient oriented x3 Limitations: no limitations HENMT: Head: normal to inspection Eyes: General: appearance normal, both eyes and all related structures Alignment and Position: alignment normal Neck: Neck: normal visual inspection, full ROM, no lymphadenopathy and no meningeal signs Chest: Chest palpation & inspection: normal inspection of the chest Resp: Effort & Inspection: normal respiratory effort and able to speak in complete sentences Cardio: Rate: regular rate Skin: General skin exam: normal color and no rashes or lesions noted Other: 2 x 1 cm pink, nonfluctuant, no increase d warmth to the dorsal right hand between the 1st and 2nd metacarpal Neuro: General: patient oriented x3, gait normal, moves all extremities and no meningeal signs Cognition (Neuro): normal cognition Speech: normal speech Gait exam (Neuro): Normal gait present Extrem: General: normal to inspection, full ROM, capillary refill normal and normal gait Psych: Appearance: grossly normal and well kempt Mental Status: mental status grossly normal Speech and movement: Normal speech and movement present and Clear speech present Affect: normal affect Attitude: cooperative Course Course Level of Care: Express Care Visit Vital Signs Vital signs: Vital Signs Temperature 97.6 F 09/25/24 08:49 Pulse Rate 79 09/25/24 08:49 Respiratory Rate 16 09/25/24 08:49 Blood Pressure 122/71 09/25/24 08:49 Pulse Oximetry 99 09/25/24 08:49 Temperature 97.6 F 09/25/24 08:49 Pulse Rate 79 09/25/24 08:49 Respiratory Rate 16 09/25/24 08:49 Blood Pressure 122/71 09/25/24 08:49 Pulse Oximetry 99 09/25/24 08:49 Reviewed MDM - Skin/Abscess/Foreign Bdy MDM Narrative Medical decision making narrative: Patient sitting in exam room. Patient is nontoxic, vitals are stable. Patient presents after being bit by a bug. Blanchable itchy area. Discussed [id number] treatments, prescribed a steroid cream Patient appropriate for outpatient treatment with close follow Discharge instructions reviewed with patient, as well as provided in writing per nursing staff. The instructions also include specific and strict return/GO TO THE ER as well as f/u information. All questions have been answered, and the patient deny any further questions with discharge and discharge plan. Some parts of this dictation were generated by voice recognition software and may contain typographical and/or grammatical inaccuracies. Differential Diagnosis Differential diagnosis: Likely abscess of skin or subcutaneous tissue, urticaria, cellulitis, insect bites and contact dermatitis Critical Care Time Critical Care Time Critical Care Time: No Discharge Plan Discharge Clinical Impression: Bug bite of hand Qualifiers: Encounter type: initial encounter Laterality: right Qualified Code(s): S60.561A - Insect bite (nonvenomous) of right hand, initial encounter; W57.XXXA - Bitten or stung by nonvenomous insect and other nonvenomous arthropods, initial encounter Patient Disposition: Home Condition: Stable Instructions: Insect Bite or Sting (ED) Additional Instructions: Take Benadryl 25 mg every 8 hours for itching Take Zyrtec 10mg every day Take Pepcid 20mg daily for 7 days Apply the steroid cream twice a day as prescribed Avoid hot showers, Take cool showers. Hot showers will make rashes worse Apply cool compresses every 2-3 hours for 15 minutes Go to the ER for new or worsening symptoms such as shortness of breath. Patient Language: Occitan Prescriptions: New triamcinolone acetonide 0.1 % cream 1 applic topical BID Qty: 15 0RF No Action calcium citrate 500 mg tablet, effervescent 500 mg PO DAILY biotin 10,000 mcg capsule 10,000 mcg PO .qd Rx Instructions: OTC vitamin B comp with C no.4 150 mg tablet 1 tablet PO .qd Rx Instructions: OTC mecobalamin (vitamin B12) 1,000 mcg tablet,chewable 1,000 mcg PO .qd (DME) Accu-Chek Shayla Plus test strp Strip See Rx Instructions .ROUTE .MEDSUPPLY Qty: 10 Rx Instructions: check blood sugar once daily folic acid 1 mg tablet 1 mg PO DAILY Qty: 90 2RF betamethasone valerate 0.1 % cream 1 applic topical BID PRN (Reason: rash) Qty: 45 0RF alprazolam 0.25 mg tablet 0.25 mg PO BID PRN (Reason: anxiety) Qty: 180 0RF methotrexate sodium 2.5 mg tablet 20 mg PO WEEKLY Qty: 96 2RF Rx Instructions: take 8 on cetirizine-pseudoephedrine [Zyrtec-D] 5-120 mg tablet extended release 12 hr 1 tablet PO Q12H Qty: 180 0RF Rx Instructions: Brand Only hydrochlorothiazide 25 mg tablet 25 mg PO DAILY Qty: 90 2RF fluoxetine 40 mg capsule 40 mg PO QAM Qty: 90 2RF metformin 500 mg tablet 1,000 mg PO BID Qty: 360 1RF Rx Instructions: with morning and evening meals omeprazole 20 mg capsule,delayed release(DR/EC) 20 mg PO DAILY Qty: 90 1RF Follow-up/Referrals: PHYSICIAN,E[employer] FRAMES INSPECTOR [Primary Care Provider] - Time of Disposition: 09:16
[2024-09-25 08:49] VITALS: BP 122/71; PULSE 79; RESP 16; TEMP 36.4; O2SAT 99
== END 2024-09-25 09:21 | disposition home or self-care (01) ==
PROVIDERS: Emergency Provider Nurse Practitioner
DX: S60.561A Insect bite (nonvenomous) of right hand, initial encounter (principal); W57.XXXA Bitten or stung by nonvenomous insect and other nonvenomous arthropods, initial encounter; E11.9 Type 2 diabetes mellitus without complications; Z79.84 Long term (current) use of oral hypoglycemic drugs; M19.90 Unspecified osteoarthritis, unspecified site; M06.9 Rheumatoid arthritis, unspecified; Z98.84 Bariatric surgery status; Z87.891 Personal history of nicotine dependence
CPT/HCPCS: 99213; G0463